=== PATIENT | male | born 1935 | race Caucasian/White ===

== ENCOUNTER 2017-02-27 17:55 | Emergency (ER) | payer MEDICARE ==
[2017-02-27 18:11] VITALS: BP 156/69
--- NOTE | 2017-02-27 18:42 | UC ---
Shai Shanks Alfonso, scribed for Speedy Breaux MD on 02/27/17 at 1817 . Abdominal Pain Male HPI - HPI Summary HPI Summary: This patient is an 82 year old M presenting to [facility] accompanied by with a chief complaint of LLQ abdominal pain since 1 week ago, worse since earlier today. The patient rates the aching pain 5/10 in severity. Symptoms aggravated by ambulation. Symptoms alleviated by nothing. Patient reports diarrhea, and constipation. Patient denies N/V. He is passing gas. He denies abdominal PSHX. - History of Current Complaint Chief Complaint: UCAbdominalPain Stated Complaint: GAS PAIN/ ABDOMINAL PAIN Time Seen by Provider: 02/27/17 18:07 Hx Obtained From: Patient Onset/Duration: Gradual Onset, Lasting Weeks - 1, Still Present, Worse Since Timing: Constant Severity Currently: Moderate Pain Intensity: 5 Pain Scale Used: 0-10 Numeric Location: Discrete At: LLQ Aggravating Factor(s): Other - ambulation Alleviating Factor(s): Nothing Associated Signs And Symptoms: Positive: Other - diarrhea, and constipation. Patient denies N/V. - Allergies/Home Medications Allergies/Adverse Reactions: Allergies Allergy/AdvReac Type Severity Reaction Status Date / Time No Known Allergies Allergy Verified 07/05/12 04:18 Home Medications: Home Medications Cyanocobalamin TAB* [Vitamin B12 TAB*] 500 mcg PO DAILY 02/27/17 [History Confirmed 02/27/17] Potassium Chlor TAB* [Potassium Chlor TAB 20 MEQ*] 40 meq PO DAILY 02/27/17 [ History Confirmed 02/27/17] Timolol 0.25% OPHTH.SOLN* [Timoptic Ophth.soln 0.25%*] 1 drop BOTH EYES BID [History Confirmed 02/27/17] PMH/Surg Hx/FS Hx/Imm Hx Previously Healthy: No Other Neurological History: Global transient amnesia - Surgical History Surgical History: Yes Surgery Procedure, Year, and Place: BROKEN RIGHT LEG. Achilles tendon repair - Family History Known Family History: Positive: Other - Lung cancer. - Social History Alcohol Use: Daily Alcohol Amount: 1 drink daily Substance Use Type: None Smoking Status (MU): Never Smoked Tobacco - Immunization History Most Recent Influenza Vaccination: 2012 Most Recent Tetanus Shot: within last 5 five years Most Recent Pneumonia Vaccination: received after age 65 Review of Systems Constitutional: Other - Negative fever Gastrointestinal: Abdominal Pain, Diarrhea, Other - Constipation; negative N/V All Other Systems Reviewed And Are Negative: Yes Physical Exam Triage Information Reviewed: Yes Vital Signs: Initial Vital Signs Temp 99.3 F 02/27/17 18:02 Pulse 73 02/27/17 18:02 Resp 18 02/27/17 18:02 BP 156/69 02/27/17 18:02 Pulse Ox 99 02/27/17 18:02 Vital Signs Reviewed: Yes - Additional Comments VITAL SIGNS: Reviewed. GENERAL: Patient is a well-developed and nourished male who is lying comfortable in the stretcher. Patient is not in any acute respiratory distress. HEAD AND FACE: Normocephalic EYES: PERRLA, EOMI x 2. EARS: Hearing grossly intact. MOUTH: Oropharynx within normal limits. NECK: Supple, trachea is midline, no adenopathy, no JVD, no carotid bruit. CHEST: Symmetric, no tenderness at palpation LUNGS: Clear to auscultation bilaterally. No wheezing or crackles. CVS: Regular rate and rhythm, S1 and S2 present, no murmurs or gallops appreciated. ABDOMEN: Soft, LLQ tenderness. Bowel sounds are normal. No abdominal abnormal pulsations. EXTREMITIES: Full ROM in all major joints, no edema, no cyanosis or clubbing. NEURO: Alert and oriented x 3. No acute neurological deficits. Speech is normal and follows commands. SKIN: Dry and warm Abd Pain Male Course/Dx - Course Course Of Treatment: This patient is an 82 year old M presenting to [facility] accompanied by with a chief complaint of LLQ abdominal pain since 1 week ago, worse since earlier today. The patient rates the aching pain 5/10 in severity. Symptoms aggravated by ambulation. Symptoms alleviated by nothing. Patient reports diarrhea, and constipation last week. Patient denies N/V. He is passing gas. He denies abdominal PSHX. I believe patient may need blood work and abdominal and pelvic CT to R/O Diverticulitis, uereter lithiasis or any other intra-abdominal pathology. Patient instructed to go immediately to [facility] and his will drive. The patient is agreeable with this plan. The patient is hemodynamically stable, alert and oriented x3. - Differential Dx/Clinical Impression Differential Diagnosis/HQI/PQRI: Bowel Obstruction, Constipation, Diverticulitis , Ischemic Bowel, Ureteral Stone Provider Diagnoses: LLQ ABDOMINAL PAIN. Discharge - Discharge Plan Condition: Stable Disposition: TRANS HIGHER LVL OF CARE FAC Discharge Disposition Comment: [facility] ED Patient Education Materials: Acute Abdominal Pain (ED) Referrals: Bean Iglesias MD [Primary Care Provider] - 3 Days Additional Instructions: GO IMMEDIATELY TO [facility] EMERGENCY DEPT. The documentation as recorded by the Shai morales Alfonso accurately reflects the service I personally performed and the decisions made by Saeid echevarria Walter, MD.
== END 2017-02-27 18:21 | disposition short-term general hospital (02) ==
LOC: UCEAST 17:55
DX: R10.32 Left lower quadrant pain (principal)
CPT/HCPCS: 99202; G0463

== ENCOUNTER 2017-02-27 18:43 | Emergency (ER) | payer MEDICARE ==
[2017-02-27] MEDS ORDERED: NS 0.9% 1000 ML* 1,000 ML IV ONE (19:41)
[2017-02-27 20:26] LABS: Hematocrit 41 % (42-52); Hemoglobin 13.8 g/dl (14.0-18.0); Mean Corpuscular HGB Conc 34 g/dl (31-36); Mean Corpuscular Hemoglobin 30 pg (27-31); Mean Corpuscular Volume 89 fL (80-94); Mean Platelet Volume 7 um3 (7.4-10.4); Red Blood Count 4.62 10^6/ul (4.0-5.4); Red Cell Distribution Width 14 % (10.5-15); White Blood Count 11.2 10^3/ul (3.5-10.8)
[2017-02-27 20:37] LABS: Albumin 3.6 g/dL (3.2-5.2); BUN/Creatinine Ratio 16.5 (8-20); Calcium 8.7 mg/dL (8.6-10.3); EGFR African American 89.4 (>60); EGFR Non-African American 69.5 (>60); Globulin 3.1 g/dL (2-4); Total Bilirubin 0.6 mg/dL (0.2-1.0); Total Protein 6.7 g/dL (6.4-8.9)
[2017-02-27 20:38] LABS: Troponin I 0.01 ng/mL (<0.04)
[2017-02-27 20:43] LABS: Urine Bacteria Absent (Absent); Urine Bilirubin Negative (Negative); Urine Glucose Negative (Negative); Urine Nitrite Negative (Negative)
[2017-02-27] MEDS ORDERED: Iohexol 300* (CONTRAST) 10 ML SDV IV ONE (21:32)
[2017-02-27] MEDS ORDERED: metroNIDAZOLE TAB* 250 MG PO ONE (23:04)
[2017-02-27] MEDS ORDERED: Levofloxacin TAB* 250 MG PO ONE (23:05)
[2017-02-27 23:22] VITALS: BP 156/85
--- NOTE | 2017-02-28 00:05 | ED ---
Anand Shanks Tiffany, scribed for Ortega Cruz on 02/27/17 at 1947 . Abdominal Pain/Male - HPI Summary HPI Summary: This patient is an 82 year old M referred from [facility] [place] [facility] accompanied by with a chief complaint of sharp LLQ abdominal pain for the past week, worse since earlier today. The patient rates the pain 8/10 in severity. Symptoms aggravated by nothing. Symptoms alleviated by nothing. Patient reports nausea and diarrhea. Patient denies bloody stools, vomiting, chest pain, and shortness of breath. - History of Current Complaint Chief Complaint: EDAbdPain Stated Complaint: ABD PAIN Time Seen by Provider: 02/27/17 19:05 Hx Obtained From: Patient Onset/Duration: Lasting Weeks - 1 week, Still Present, Worse Since - Earlier today Timing: Constant Severity Currently: Severe Pain Intensity: 8 Pain Scale Used: 0-10 Numeric Location: Discrete At: LLQ Character: Sharp Aggravating Factor(s): Nothing Alleviating Factor(s): Nothing Associated Signs And Symptoms: Positive: Other - nausea and diarrhea; NEGATIVE: bloody stools, vomiting, chest pain, and shortness of breath - Allergies/Home Medications Allergies/Adverse Reactions: Allergies Allergy/AdvReac Type Severity Reaction Status Date / Time No Known Allergies Allergy Verified 02/27/17 18:49 PMH/Surg Hx/FS Hx/Imm Hx Previously Healthy: No Cardiovascular History: Reports: Hx Hypertension Denies: Hx Pacemaker/ICD Sensory History: Reports: Hx Contacts or Glasses Denies: Hx Hearing Aid Opthamlomology History: Reports: Hx Contacts or Glasses Psychiatric History: Denies: Hx Panic Disorder - Cancer History Cancer Type, Location and Year: Family history - Surgical History Surgery Procedure, Year, and Place: BROKEN RIGHT LEG. Achilles tendon repair Hx Anesthesia Reactions: No Infectious Disease History: No Infectious Disease History: Denies: Traveled Outside the [place] in Last 30 Days - Family History Known Family History: Positive: Other - Lung cancer. - Social History Alcohol Use: Daily Alcohol Amount: 1 drink daily Hx Substance Use: No Substance Use Type: Reports: None Hx Tobacco Use: No Smoking Status (MU): Never Smoked Tobacco Review of Systems Negative: Chest Pain Negative: Shortness Of Breath Positive: Abdominal Pain - LLQ, Diarrhea, Nausea, Other - NEGATIVE: Blood stools. Negative: Vomiting All Other Systems Reviewed And Are Negative: Yes Physical Exam - Summary Physical Exam Summary: Appearance: Well appearing, no pain distress Skin: warm, dry, reflects adequate perfusion Head/face: normal Eyes: EOMI, NACHO ENT: normal Neck: supple, non-tender Respiratory: CTA, breath sounds present Cardiovascular: RRR, pulses symmetrical Abdomen: tenderness over LLQ Bowel: present Musculoskeletal: normal, strength/ROM intact Neuro: normal, sensory motor intact, A&Ox3 Vital Signs On Initial Exam: Initial Vitals Temp Pulse Resp BP Pulse Ox 99.3 F 84 16 116/100 94 02/27/17 18:45 02/27/17 18:45 02/27/17 18:45 02/27/17 18:45 02/27/17 18:45 - Himrod Coma Scale Coma Scale Total: 15 Diagnostics - Vital Signs Vital Signs Temp Pulse Resp BP Pulse Ox 02/27/17 18:45 99.3 F 84 16 116/100 94 - Laboratory Lab Results: Lab Results 02/27/17 02/27/17 02/27/17 Range/Units 19:41 19:41 19:50 WBC (3.5-10.8) 10^3/ul RBC (4.0-5.4) 10^6/ul Hgb (14.0-18.0) g/dl Hct (42-52) % MCV (80-94) fL MCH (27-31) pg MCHC (31-36) g/dl RDW (10.5-15) % Plt Count (150-450) 10^3/ul MPV (7.4-10.4) um3 Neut % (Auto) (38-83) % Lymph % (Auto) (25-47) % [place] % (Auto) (1-9) % Eos % (Auto) (0-6) % Baso % (Auto) (0-2) % Absolute Neuts (auto) (1.5-7.7) 10^3/ul Absolute Lymphs (auto) (1.0-4.8) 10^3/ul Absolute Monos (auto) (0-0.8) 10^3/ul Absolute Eos (auto) (0-0.6) 10^3/ul Absolute Basos (auto) (0-0.2) 10^3/ul Absolute Nucleated RBC 10^3/ul Nucleated RBC % INR (Anticoag Therapy) 1.04 H (0.77-1.02) APTT 30.1 (26.0-36.3) seconds Sodium 135 (133-145) mmol/L Potassium 4.0 (3.5-5.0) mmol/L Chloride 103 (101-111) mmol/L Carbon Dioxide 29 (22-32) mmol/L Anion Gap 3 (2-11) mmol/L BUN 17 (6-24) mg/dL Creatinine 1.03 (0.67-1.17) mg/dL Est GFR ( Amer) 89.4 (>60) Est GFR (Non-Af Amer) 69.5 (>60) BUN/Creatinine Ratio 16.5 (8-20) Glucose 124 H (70-100) mg/dL Lactic Acid 0.8 (0.5-2.0) mmol/L Calcium 8.7 (8.6-10.3) mg/dL Total Bilirubin 0.60 (0.2-1.0) mg/dL AST 14 (13-39) U/L ALT 9 (7-52) U/L Alkaline Phosphatase 78 (34-104) U/L Troponin I 0.01 (<0.04) ng/mL Total Protein 6.7 (6.4-8.9) g/dL Albumin 3.6 (3.2-5.2) g/dL Globulin 3.1 (2-4) g/dL Albumin/Globulin Ratio 1.2 (1-3) Lipase 16 (11.0-82.0) U/L Urine Color Urine Appearance Urine pH (5-9) Ur Specific Mcallister (1.010-1.030) Urine Protein (Negative) Urine Ketones (Negative) Urine Blood (Negative) Urine Nitrate (Negative) Urine Bilirubin (Negative) Urine Urobilinogen (Negative) Ur Leukocyte Esterase (Negative) Urine WBC (Auto) (Absent) Urine RBC (Auto) (Absent) Urine Bacteria (Absent) Urine Glucose (Negative) 02/27/17 02/27/17 Range/Units 19:50 20:19 WBC 11.2 H (3.5-10.8) 10^3/ul RBC 4.62 (4.0-5.4) 10^6/ul Hgb 13.8 L (14.0-18.0) g/dl Hct 41 L (42-52) % MCV 89 (80-94) fL MCH 30 (27-31) pg MCHC 34 (31-36) g/dl RDW 14 (10.5-15) % Plt Count 203 (150-450) 10^3/ul MPV 7 L (7.4-10.4) um3 Neut % (Auto) 73.9 (38-83) % Lymph % (Auto) 13.1 L (25-47) % [place] % (Auto) 10.9 H (1-9) % Eos % (Auto) 1.7 (0-6) % Baso % (Auto) 0.4 (0-2) % Absolute Neuts (auto) 8.2 H (1.5-7.7) 10^3/ul Absolute Lymphs (auto) 1.5 (1.0-4.8) 10^3/ul Absolute Monos (auto) 1.2 H (0-0.8) 10^3/ul Absolute Eos (auto) 0.2 (0-0.6) 10^3/ul Absolute Basos (auto) 0 (0-0.2) 10^3/ul Absolute Nucleated RBC 0.01 10^3/ul Nucleated RBC % 0.1 INR (Anticoag Therapy) (0.77-1.02) APTT (26.0-36.3) seconds Sodium (133-145) mmol/L Potassium (3.5-5.0) mmol/L Chloride (101-111) mmol/L Carbon Dioxide (22-32) mmol/L Anion Gap (2-11) mmol/L BUN (6-24) mg/dL Creatinine (0.67-1.17) mg/dL Est GFR ( Amer) (>60) Est GFR (Non-Af Amer) (>60) BUN/Creatinine Ratio (8-20) Glucose (70-100) mg/dL Lactic Acid (0.5-2.0) mmol/L Calcium (8.6-10.3) mg/dL Total Bilirubin (0.2-1.0) mg/dL AST (13-39) U/L ALT (7-52) U/L Alkaline Phosphatase (34-104) U/L Troponin I (<0.04) ng/mL Total Protein (6.4-8.9) g/dL Albumin (3.2-5.2) g/dL Globulin (2-4) g/dL Albumin/Globulin Ratio (1-3) Lipase (11.0-82.0) U/L Urine Color Yellow Urine Appearance Clear Urine pH 5.0 (5-9) Ur Specific Mcallister 1.021 (1.010-1.030) Urine Protein Negative (Negative) Urine Ketones Negative (Negative) Urine Blood 2+ H (Negative) Urine Nitrate Negative (Negative) Urine Bilirubin Negative (Negative) Urine Urobilinogen Negative (Negative) Ur Leukocyte Esterase Negative (Negative) Urine WBC (Auto) Absent (Absent) Urine RBC (Auto) 2+(6-10/hpf) H (Absent) Urine Bacteria Absent (Absent) Urine Glucose Negative (Negative) Result Diagrams: 02/27/17 19:50 02/27/17 19:41 Lab Statement: Any lab studies that have been ordered have been reviewed, and results considered in the medical decision making process. - CT Abd/Pel CT Interpretation Completed By: Radiologist - There is chronic diverticulosis with segmental thickening and pericolonic inflammatory changes involving the proximal sigmoid colon compatible with acute diverticulitis. There is trace ascites in the lower left paracolic gutter. No evidence of diverticular abscess. No free air. There is no bowel distension. Contrast has not progressed to the colon. Left inguinal and umbilical hernias containing fat. The upper abdominal visceral organs are unremarkable. There is a small hiatal hernia. Mild atelectasic changes at the lung bases. ED physician has reviewed this radiology report. Abdominal Pain Fem Course/Dx - Course Course Of Treatment: This patient is an 82 year old M referred from [facility] [place] [facility] accompanied by with a chief complaint of sharp LLQ abdominal pain for the past week, worse since earlier today. CT Abd/Pel reveals, per radiologist, There is chronic diverticulosis with segmental thickening and pericolonic inflammatory changes involving the proximal sigmoid colon compatible with acute diverticulitis. There is trace ascites in the lower left paracolic gutter. No evidence of diverticular abscess. No free air. There is no bowel distension. Contrast has not progressed to the colon. Left inguinal and umbilical hernias containing fat. The upper abdominal visceral organs are unremarkable. There is a small hiatal hernia. Mild atelectasic changes at the lung bases. Bloodwork/UA obtained. In the ED course, the patient was given Levaquin and Flagyl. Patient will be discharged with prescription for Levaquin and Flagyl and follow up from PCP. The patient is agreeable with this plan. - Diagnoses Differential Diagnosis/HQI/PQRI: Appendicitis, Bowel Obstruction, Constipation, Diverticulitis, Pancreatitis, Ureteral Stone, Urinary Tract Infection Provider Diagnoses: Diverticulitis Discharge - Discharge Plan Condition: Stable Disposition: HOME Prescriptions: Levofloxacin TAB* [Levaquin TAB*] 500 mg PO DAILY #10 tab Metronidazole [Flagyl 500 MG TAB] 500 mg PO TID #30 tab Patient Education Materials: Diverticulitis (ED) Referrals: Bean Iglesias MD [Primary Care Provider] - 3 Days Additional Instructions: Follow up with your Primary Care Provider in 3 days. Return to the Emergency Room if current symptoms worsen or if new symptoms develop. The documentation as recorded by the Anand morales Tiffany accurately reflects the service I personally performed and the decisions made by , Ortega Cruz.
--- NOTE | 2017-02-28 07:46 | RAD ---
CLINICAL HISTORY: Abdominal pain, diverticulitis COMPARISON: None TECHNIQUE: Multiple contiguous axial CT scans were obtained of the abdomen and pelvis after the administration of intravenous contrast. Coronal and sagittal multiplanar reformations are submitted for review. Oral contrast was administered. Delayed images were obtained through the abdomen and pelvis. FINDINGS: LUNG BASES: The lung bases are clear. LIVER: There is focal fatty infiltration along the ligamentum teres hepatis. The liver is otherwise normal in shape, size, contour, and attenuation. BILE DUCTS: There is no intrahepatic or extrahepatic biliary dilatation. GALLBLADDER: The gallbladder is normal, without pericholecystic inflammatory change. PANCREAS: The pancreas is normal, without mass or ductal dilatation. SPLEEN: Normal in size and appearance. UPPER GI TRACT: Evaluation of the gastrointestinal tract is limited by incomplete gastric distention. There is a small sliding hiatal hernia. SMALL BOWEL AND MESENTERY: The small bowel is normal in contour, course, and caliber. There is no obstruction or dilatation. COLON: There is extensive diverticulosis throughout the colon. Along the sigmoid colon, there is mucosal thickening with stranding of the pericolonic fat and small amount of free fluid along the sigmoid mesentery. There is no appreciable extraluminal gas. There is no loculated fluid collection. ADRENALS: Normal bilaterally. KIDNEYS: The kidneys are normal in shape, size, contour, and axis. There is no hydronephrosis or nephrolithiasis. BLADDER: The bladder is smooth in contour. PELVIC ORGANS: The prostate gland is normal. The seminal vesicles are symmetric. AORTA: There is calcific atherosclerotic disease of the abdominal aorta and its branches, without aneurysmal dilatation IVC: Unremarkable LYMPH NODES: There is no lymphadenopathy by size criteria. ABDOMINAL WALL: There is a fat-containing umbilical hernia. There is a fat-containing left inguinal hernia.. BONES AND SOFT TISSUES: Degenerative changes are noted OTHER: None IMPRESSION: EXTENSIVE COLONIC DIVERTICULOSIS WITH SIGMOID DIVERTICULITIS WITHOUT LOCULATED FLUID COLLECTION TO SUGGEST ABSCESS.
== END 2017-02-27 23:33 | disposition home or self-care (01) ==
LOC: ED 18:43
DX: K57.30 Diverticulosis of large intestine without perforation or abscess without bleeding (principal); I10 Essential (primary) hypertension
CPT/HCPCS: 36415; 74177; 80053; 81003; 81015; 83605; 83690; 84484; 85025; 85610; 85730; 96360; 96374; 99283; A9270-GY; Q9967

== ENCOUNTER 2018-01-05 13:42 | Emergency (ER) | payer MEDICARE ==
[2018-01-05 14:33] VITALS: BP 170/96
--- NOTE | 2018-01-05 15:04 | ED ---
HPI Chest Pain - HPI Summary HPI Summary: This pt is an 82 y/o male presenting [place] [facility] [place]/o intermittent chest tightness x3 days. Pt reports his chest pain episodes last 5 seconds at a time. He had three episodes of chest tightness yesterday and today he reports 2 episodes. Pt notes today he had left hand numbness. Denies abd pain, nausea, vomiting, dizziness, SOB. Pt states he has recently been rebuilding a walk way and moving a lot of stones around. He also reports picking up stuff with a shovel and moving a wheelbarrow around. No hx of [place]. His last stress test was 8 years ago. Pt is a former smoker, quit 30-40 years ago. Pt takes aspirin every day and glaucoma medications. He does not take antihypertensive medications. - History of Current Complaint Chief Complaint: EDChestPainROMI Time Seen by Provider: 01/05/18 14:51 Hx Obtained From: Patient Onset/Duration: Started Days Ago - 3, Still Present Timing: Intermittent, Lasting Seconds - 5 sec at a time Current Severity: None Pain Intensity: 0 Pain Scale Used: 0-10 Numeric Chest Pain Location: Mid Sternal Chest Pain Radiates: No Character: Tightness Aggravating Factor(s): Nothing Alleviating Factor(s): Nothing Associated Signs and Symptoms: Positive: Chest Pain, Numbness - left hand. Negative: Dizziness, Shortness of Breath, Fever, Chills, Nausea, Abdominal Pain , Vomiting - Allergy/Home Medications Allergies/Adverse Reactions: Allergies Allergy/AdvReac Type Severity Reaction Status Date / Time No Known Allergies Allergy Verified 02/27/17 18:49 PMH/Surg Hx/FS Hx/Imm Hx Cardiovascular History: Reports: Hx Hypertension Denies: Hx Pacemaker/ICD Sensory History: Reports: Hx Contacts or Glasses Denies: Hx Hearing Aid Opthamlomology History: Reports: Hx Contacts or Glasses, Hx Glaucoma Psychiatric History: Denies: Hx Panic Disorder - Cancer History Cancer Type, Location and Year: Family history - Surgical History Surgery Procedure, Year, and Place: BROKEN RIGHT LEG. Achilles tendon repair Hx Anesthesia Reactions: No Infectious Disease History: No Infectious Disease History: Denies: Traveled Outside the [place] in Last 30 Days - Family History Known Family History: Positive: Other - Lung cancer. Family History: Father with cancer - Social History Alcohol Use: Daily Alcohol Amount: 1 drink daily Hx Substance Use: No Substance Use Type: Reports: None Hx Tobacco Use: No Smoking Status (MU): Former Smoker - quit 30-40 years ago Review of Systems Negative: Fever, Chills Positive: Chest Pain Negative: Shortness Of Breath Negative: Abdominal Pain, Vomiting, Nausea Neurological: Other - NEG: dizziness Positive: Numbness - in left hand All Other Systems Reviewed And Are Negative: Yes Physical Exam - Summary Physical Exam Summary: Appearance: Well appearing, no pain distress Skin: warm, dry, reflects adequate perfusion Head/face: normal Eyes: EOMI, NACHO ENT: normal Neck: supple, nontender Respiratory: CTA, breath sounds present Cardiovascular: RRR, pulses symmetrical Abdomen: nontender, soft Bowel: present Musculoskeletal: normal, strength/ROM intact Neuro: normal, sensory motor intact, A&Ox3 Triage Information Reviewed: Yes Vital Signs On Initial Exam: Initial Vitals Temp Pulse Resp BP Pulse Ox 98.1 F 62 14 170/96 96 01/05/18 14:28 01/05/18 14:28 01/05/18 14:28 01/05/18 14:28 01/05/18 14:28 Vital Signs Reviewed: Yes Diagnostics - Vital Signs Vital Signs Temp Pulse Resp BP Pulse Ox 01/05/18 14:28 98.1 F 62 14 170/96 96 - Laboratory Result Diagrams: 01/05/18 15:11 01/05/18 15:11 Lab Statement: Any lab studies that have been ordered have been reviewed, and results considered in the medical decision making process. - Radiology Chest XR Radiology Interpretation Completed By: Radiologist Summary of Radiographic Findings: IMPRESSION: No active cardiopulmonary disease is noted. Dr. Cruz has reviewed this report. - EKG 14:44 Cardiac Rate: NL - at 61 bpm EKG Rhythm: Sinus Rhythm Summary of EKG Findings: No acute changes Chest Pain Course/Dx - Course Assessment/Plan: Pt is an 82 y/o male who presents with intermittent chest tightness x3 days. Pt reports his chest pain episodes last 5 seconds at a time. He had three episodes of chest tightness yesterday and today he reports 2 episodes. Pt notes today he had left hand numbness. Blood work was obtained. Chest XR shows no active cardiopulmonary disease is noted. Pt eloped from the ED before obtaining blood work results. - Chest Pain Differential Diagnosis/HQI/PQRI: Acute [place], ACS, Angina, CHF, Chest Wall, Lower Respiratory Infection - Diagnoses Provider Diagnoses: Chest pain Discharge - Sign-Out/Discharge Documenting (check all that apply): Patient Departure - ELOPEMENT - Discharge Plan Condition: Fair Disposition: ELOPEMENT Referrals: Bean Iglesias MD [Primary Care Provider] - - Billing Disposition and Condition Condition: FAIR Disposition: Elopement - Attestation Statements Document Initiated by Scribe: Yes Documenting Scribe: Venice Churchill Provider For Whom Baljit is Documenting (Include Credential): Ortega Cruz MD Scribe Attestation: Venice Shanks, scribed for Ortega Cruz MD on 01/05/18 at 1608. Scribe Documentation Reviewed: Yes Provider Attestation: The documentation as recorded by the Venice morales accurately reflects the service I personally performed and the decisions made by , Ortega Cruz MD
[2018-01-05] MEDS ORDERED: Aspirin 81 mg CHEW TAB* 81 MG TAB.CHEW PO ONE (15:05)
[2018-01-05 15:25] LABS: ABS Basophils 0 10^3/ul (0-0.2); ABS Eosinophils 0.3 10^3/ul (0-0.6); ABS Lymphocytes 1.9 10^3/ul (1.0-4.8); ABS Monocytes 0.6 10^3/ul (0-0.8); ABS Neutrophils 3.8 10^3/ul (1.5-7.7); ABS Nucleated RBC 0 10^3/ul; Eosinophil % 4.8 % (0-6); Hematocrit 44 % (42-52); Hemoglobin 14.8 g/dl (14.0-18.0); Lymphocyte % 29.3 % (25-47); Mean Corpuscular HGB Conc 34 g/dl (31-36); Mean Corpuscular Hemoglobin 30 pg (27-31); Mean Corpuscular Volume 89 fL (80-94); Nucleated Red Blood Cells % 0.1; Platelet Count 210 10^3/ul (150-450); Red Cell Distribution Width 14 % (10.5-15); White Blood Count 6.6 10^3/ul (3.5-10.8)
[2018-01-05 15:36] LABS: INR 0.9 (0.77-1.02)
[2018-01-05 15:46] LABS: EGFR Non-African American 73.6 (>60)
--- NOTE | 2018-01-05 15:59 | RAD ---
Indication: Chest pain. Single frontal view of the chest performed at 1515 hours was reviewed. Comparison is made with previous exam dated March 04, 2013. No mediastinal shift is noted. Heart is of normal size and configuration. Lung mcleod appear clear. IMPRESSION: NO ACTIVE CARDIOPULMONARY DISEASE IS NOTED.
== END 2018-01-05 18:59 | disposition home or self-care (01) ==
LOC: ED 13:42
DX: R07.9 Chest pain, unspecified (principal); Z87.891 Personal history of nicotine dependence
CPT/HCPCS: 36415; 71045; 80053; 83605; 83735; 83880; 84484; 85025; 85610; 85730; 93005; 99282